=== PATIENT | male | born 1990 | race Caucasian/White ===

== ENCOUNTER 2016-12-20 13:47 | Emergency (ER) ==
[2016-12-20] MEDS ORDERED: NS 1,000 ML IV ONE ×2 (14:22)
[2016-12-20] MEDS ORDERED: ALBUTEROL NEB INH ONE (14:22)
[2016-12-20] MEDS ORDERED: ZOFRAN IV ONE (14:22)
--- NOTE | 2016-12-20 14:27 | PROVIDER DOCUMENTATION ---
HPI-General Adult - General Source: patient - History of Present Illness -Gen Adult Nature of Presenting Problems: Pt is 26 y/o M presents to the ED with N/V, F, and body aches. Pt states symptoms started last night. Pt states having a MASSEY but has hx of migraines. Pt states SOB. Pt denies CP and vision changes. Location of Pain/Injury: reports: generalized Pain Radiation: reports: no radiation Quality of Pain: reports: aching Severity: reports: mild Onset/Duration: reports: last night Timing: reports: still present, intermittent Context/Activities at Onset: reports: light activity Modifying Factors: improves with: nothing Associated Symptoms: reports: fever/chills (subjective F), muscle aches, nausea , shortness of breath, vomiting, weakness. denies: anxiety, arm pain, back/ neck pain, chest pain, constipation, cough, diaphoresis, diarrhea, dizziness, EENT symptoms, fatigue, genitourinary problems, headaches, heartburn, joint pain , loss of appetite, malaise, sinus congestion/drainage, rash, seizure, sensory/ motor loss, pain with inspiration, swelling/mass in abdomen, syncope, trouble walking Similar Symptoms Previously?: Yes Recently seen or treated by another doctor?: No <Cielo Welch - Last Filed: 12/20/16 17:54> <Brian Vivar - Last Filed: 12/20/16 18:15> - General Chief Complaint: Nausea/Vomiting Stated Complaint: N/V Time Seen by Provider: 12/20/16 14:09 Allergies/Adverse Reactions: Patient Allergies Allergy/AdvReac Type Severity Reaction Status Date / Time No Known Allergies Allergy Verified 04/17/16 23:50 Home Medications: Home Medication List Medication Instructions Recorded Confirmed Last Taken Type Promethazine [Phenergan] 25 mg PO Q6H PRN PRN #12 tablet 12/20/16 Unknown Rx Review of Systems - Adult - REVIEW OF SYSTEMS - ADULT Constitutional: reports: fever (subjective). denies: chills Eyes: denies: discharge, blurred vision, double vision Ears, Nose, Mouth & Throat: denies: ear pain, nose pain, throat pain Cardiovascular: denies: chest pain, heart murmur, irregular heart rate Respiratory: reports: shortness of breath, wheezing. denies: cough Gastrointestinal: reports: nausea, vomiting. denies: abdominal pain, diarrhea, frequent heartburn Genitourinary: denies: dysuria, hematuria Musculoskeletal: reports: muscle aches. denies: bone pain, joint pain, neck pain Integumentary: denies: hives, itching Neurological: reports: headache/migraines. denies: dizziness/vertigo Psychiatric: reports: no symptoms reported Endocrine: reports: no symptoms reported Hematologic/Lymphatic: reports: no symptoms reported Allergic/Immunologic: reports: no symptoms reported All Other Systems: Reviewed and Negative <Chen Welchomi - Last Filed: 12/20/16 17:54> Past History - Adult - PAST MEDICAL HISTORY-ADULT Review of Records: reports: Nursing Assessment Review, Medications Reviewed, Social history reviewed & non-contributory. Major Childhood Illnesses: reports: denies history Cardiovascular: reports: denies history Respiratory: reports: denies history Gastrointestinal: reports: denies history Obstetrical/Gynecological: reports: denies history Genitourinary: reports: denies history Musculoskeletal: reports: denies history Neurological: reports: denies history Endocrine/Immune: reports: denies history Other Conditions: reports: denies history - PRIOR SURGERIES/PROCEDURES Surgical/Procedure History: reports: tonsillectomy - IMMUNIZATION STATUS Childhood Immunizations: See Nurse Assessment Flu Vaccine: See Nurse Assessment - FAMILY HISTORY Family History: reviewed, not pertinent - SOCIAL HISTORY Smoking: denies Substance Use: denies Living Situation: family <Cielo Welch - Last Filed: 12/20/16 17:54> Physical Exam-General - PHYSICAL EXAM-ADULT Initial Vital Signs Reviewed: Yes - CONSTITUTIONAL General Appearance: appears well, alert, no apparent distress - EYES Eyes: PERRL/EOMI, pink conjunctivae, fundi clear, no AV nicking - HEAD, EARS, NOSE, MOUTH & THROAT HENMT: normocephalic/atraumatic, moist mucous membranes, normal ENT inspection, TMs normal, pharynx normal - NECK Neck: non-tender, full range of motion, supple, normal inspection - RESPIRATORY Respiratory: chest non-tender, normal breath sounds, no pleuratic chest pain, no respiratory distress, no accessory muscle use, wheezing - CARDIOVASCULAR Cardiovascular: normal peripheral pulses, regular rate, rhythm, no edema, no gallop, no JVD, no murmur - GASTROINTESTINAL (ABDOMEN) Abdominal Exam: normal bowel sounds, non tender, soft, no organomegaly, no pulsatile mass - LYMPHATIC Lymphatic: no adenopathy - MUSCULOSKELETAL Back Exam: normal inspection, no CVA tenderness, no vertebral tenderness Extremity: normal range of motion, non-tender, normal gait, normal inspection, no pedal edema - SKIN Integumentary: normal color, normal turgor, warm/dry - NEUROLOGIC Neurologic: grossly normal - PSYCHIATRIC Psych/Mental Status: normal mood/affect, oriented x 3 <Cielo Welch - Last Filed: 12/20/16 17:54> Progress - PLAN OF CARE/RESULTS Progress/Plan/Lab Results: Orders Category Date Time Status CBC WITH ELECTRONIC DIFF [HEME] Stat Lab 12/20/16 14:22 Ordered COMPREHENSIVE METABOLIC PANEL [CHEM] Stat Lab 12/20/16 14:22 Ordered Flu [INFLUENZA SCREEN PL] Stat Lab 12/20/16 14:10 Received 0.9% Sodium Chloride Inj [Ns] 1,000 ml Med 12/20/16 14:22 Active IV 999 mls/hr 0.9% Sodium Chloride Inj [Ns] 1,000 ml Med 12/20/16 14:22 Active IV 999 mls/hr Albuterol [Albuterol Neb] Med 12/20/16 14:22 Discontinued 2.5 mg INH NOW ONE Ondansetron [Zofran] Med 12/20/16 14:22 Discontinued 8 mg IV NOW ONE Aerosol Treatments Routine Oth 12/20/16 14:23 Active Aerosol Treatments Stat Oth 12/20/16 14:23 Active Vital Signs - 24 hr 12/20/16 13:54 Temperature 99 F Pulse Rate 85 Respiratory 18 Rate Blood Pressure 176/95 O2 Sat by Pulse 100 Oximetry Laboratory Tests 12/20/16 12/20/16 12/20/16 14:10 14:11 14:11 WBC 9.49 RBC 4.99 Hgb 14.7 Hct 42.9 MCV 86.0 MCH 29.5 MCHC 34.3 RDW Std Deviation 12.6 Plt Count 401 H MPV 8.6 Immature Gran % (Auto) 0.2 Neut % (Auto) 70.3 Lymph % (Auto) 20.2 L [place] % (Auto) 6.7 Eos % (Auto) 2.4 Baso % (Auto) 0.2 Immature Gran # (Auto) 0.02 Neut # (Auto) 6.66 H Lymph # (Auto) 1.92 [place] # (Auto) 0.64 H Eos # (Auto) 0.23 Baso # (Auto) 0.02 Sodium 140 Potassium 3.3 L Chloride 99 Carbon Dioxide 29 Anion Gap 12 BUN 8 Creatinine 1.0 Estimated GFR/1.73 m2 > 60 BUN/Creatinine Ratio 8 Glucose 113 H Calculated Osmolality 279 Calcium 9.4 Total Bilirubin 0.50 AST 17 ALT 26 Alkaline Phosphatase 88 Total Protein 7.5 Albumin 4.6 Globulin 3.0 Albumin/Globulin Ratio 2.0 Influenza A (Rapid) NEGATIVE Influenza B (Rapid) NEGATIVE - REASSESSMENT Reassessment #1 Time Reassessed: 17:26 (Dr. Vivar at bedside with Pt) Status: improving (Dr. Vivar states will give Pt PO liquids and will see if Pt can hold down PO liquids. Dr. Vivar states if Pt can hold down PO liquids he can go home.) Reassessment Comment: Pt states he is feeling better. <Cielo Welch - Last Filed: 12/20/16 17:54> - REASSESSMENT Reassessment #2 Time Reassessed: 17:56 (frankie po fluids) Status: improving <Brian Vivar - Last Filed: 12/20/16 18:15> Departure <Cielo Welch - Last Filed: 12/20/16 17:54> - Departure Time of Disposition Order: 18:14 Certified Medical Emergency: Emergent <Brian Vivar - Last Filed: 12/20/16 18:15> - Departure DIAGNOSIS: Nausea & vomiting Qualifiers: Vomiting type: unspecified Vomiting Intractability: non-intractable Qualified Code(s): R11.2 - Nausea with vomiting, unspecified Disposition: HOME 01 Condition: Good Additional Instructions: ED Follow Up Instructions: You have been treated by a care provider in the Emergency Department. These instructions are being provided to you so you can have an understanding of how to care for yourself upon discharge. Upon discharge from the Emergency Department, you are responsible for making arrangements for follow-up care by a physician of your choice. Take all prescribed medications as directed. Return to the Emergency Department immediately for any new or worsening symptoms. You may call the Physician Referral phone number at [phone] to obtain a list of Physicians who are taking new patients. Prescriptions: Promethazine [Phenergan] 25 mg PO Q6H PRN PRN #12 tablet PRN Reason: Nausea And Vomiting Referrals: Mickey Vieira MD [STAFF PHYSICIAN] - Forms: Return to School/Parent Work Instructions: Nausea and Vomiting, [id number] Attestation - Scribe Verification/Attestation Scribe:: Cielo Welch Acting as Scribe for:: Brian Vivar Scribe documention review:: This chart was documented by a scribe and accurately reflects the service the provider performed and the decisions made by the provider. <Cielo Welch - Last Filed: 12/20/16 17:54> Physician Attestation - Physician Attestation I, the provider, attest to the following statement:: Brian Vivar Physician documentation Attestation:: This documentation recorded by the scribe accurately reflects the service I personally performed and the decisions made by me. <Brian Vivar - Last Filed: 12/20/16 18:15>
[2016-12-20 14:33] LABS: MANUAL DIFF NEEDED? NO
[2016-12-20 14:35] LABS: BASO% 0.2 % (0.0-0.8); EOS# 0.23 X1000 (0.0-0.7); EOS% 2.4 % (0.0-10.0); HEMATOCRIT 42.9 % (42.0-52.0); HEMOGLOBIN 14.7 g/dL (14.0-18.0); IMM GRAN# 0.02 X1000 (0.0-0.04); IMM GRAN% 0.2 % (0.0-0.5); LYMPH# 1.92 X1000 (1.2-3.4); LYMPH% 20.2 % (20.5-51.1); MCH 29.5 PG (27-31); MCHC 34.3 g/dL (33-37); MONO# 0.64 X1000 (0.11-0.59); MONO% 6.7 % (1.7-9.3); MPV 8.6 FL (7.4-10.4); NEUT% 70.3 % (42.2-75.2); PLT 401 X1000 (130-400); RBC 4.99 XMIL (4.7-6.1)
[2016-12-20] MEDS ORDERED: REGLAN IV ONE (14:51)
[2016-12-20] MEDS ORDERED: BENADRYL IV ONE (14:51)
[2016-12-20 15:01] LABS: AGAP 12; ALBUMIN 4.6 g/dL (3.5-5.0); ALKALINE PHOSPHATASE 88 U/L (32-122); BUN 8 mg/dL (8-22); CALCIUM 9.4 mg/dL (8.8-10.2); CHLORIDE 99 mmol/L (98-107); COSMO 279; GOT 17 U/L (10-34); GPT 26 U/L (10-44); POTASSIUM 3.3 mmol/L (3.5-5.1); SODIUM 140 mmol/L (136-145); TCO2 29 mmol/L (25-35); TOTAL PROTEIN 7.5 g/dL (6.3-8.3)
[2016-12-20 17:29] VITALS: BP 143/75
== END 2016-12-20 18:26 | disposition home or self-care (01) ==
LOC: P.ED 13:47
DX: R11.2 Nausea with vomiting, unspecified (principal); R50.9 Fever, unspecified; R06.02 Shortness of breath; R06.2 Wheezing; M79.1 Myalgia; R51 Headache
CPT/HCPCS: 80053; 85025; 87804; 94640; J1200; J2405; J2765; J7030